=== PATIENT | female | born 1965 | race African-American/Black ===

== ENCOUNTER 2022-10-15 07:14 | Emergency (ER) | payer OTHER ==
[~2022-10-15] VITALS: Ht 172.7 cm; Wt 68.0 kg
[2022-10-15 08:23] VITALS: BP 134/78
== END 2022-10-15 08:25 | disposition home or self-care (01) ==
LOC: ER 07:14
DX: Z00.00 Encounter for general adult medical examination without abnormal findings (principal); M54.2 Cervicalgia; I10 Essential (primary) hypertension
CPT/HCPCS: 99283